=== PATIENT | male | born 1940 | race Caucasian/White ===

== ENCOUNTER 2016-07-12 15:10 | Emergency (ER) | payer MEDICARE, OTHER ==
[2016-07-12 15:42] LABS: #Eosinphils 0.1 thou/uL (0.0-0.7); #Lymphocytes 1.4 thou/uL (1.20-3.40); #Monocytes 0.4 thou/uL (0.11-0.59); #Neutrophils 3.7 thou/uL (1.40-6.50); %Basophils 0.8 % (0.0-1.0); %Eosinophils 1.2 % (0.0-10.0); %Lymphocytes 24.9 % (21.0-51.0); %Monocytes 7.4 % (0.0-10.0); %Neutrophils 65.7 % (42.0-75.0); Hemoglobin 11.7 g/dL (14.0-18.0); Mean Corpuscular HGB CONC 34.1 g/dL (32.0-36.0); Mean Corpuscular Hemoglobin 33.7 pg (27.0-31.0); Mean Corpuscular Volume 98.9 fl (80.0-94.0); Mean Platelet Volume 6.7 fL (7.4-10.4); Platelet Count 238 thou/uL (130-400); RBC Distribution Width 11.4 % (11.5-14.5); Red Blood Cell (RBC) Count 3.48 mill/uL (4.70-6.10); White Blood Cell (WBC) Count 5.6 thou/uL (4.8-10.8)
[2016-07-12 15:59] LABS: ALT (SGPT) 10 U/L (0-55); AST (SGOT) 14 U/L (5-34); Albumin 3.7 g/dL (3.4-4.8); Alkaline Phosphatase 80 U/L (40-150); Anion Gap 12 mmol/L (10-20); BUN (Urea Nitrogen) 18 mg/dL (8.4-25.7); Bilirubin, Total 0.4 mg/dL (0.2-1.2); Calc. Creatinine Clearance 0 mL/min (70-130); Calcium 8.8 mg/dL (7.8-10.44); Carbon Dioxide 28 mmol/L (23-31); Chloride 102 mmol/L (98-107); Estimated GFR-MDRD 69; Globulin 2.3 g/dL (2.4-3.5); Glucose 114 mg/dL (83-110); Potassium 4.2 mmol/L (3.5-5.1); Sodium 138 mmol/L (136-145)
--- NOTE | 2016-07-12 15:59 | CT ---
CT OF BRAIN PERFORMED WITHOUT CONTRAST ENHANCEMENT: HISTORY: Altered mental status. COMPARISON: 02/29/16 study. FINDINGS: There is marked generalized ventricular and sulcal prominence. Left-sided frontal temporal cranioto my change and underlying encephalomalacia is a stable finding. Chronic white matter changes are see n. No signs of intracerebral hemorrhage or extraaxial fluid collections. 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 POS: [facility]
[2016-07-12 16:00] LABS: Acetaminophen Less than 3.0 mcg/mL (10.0-30.0); Alcohol Less than 10 mg/dL (Less than 10); Salicylate Less than 5.0 mg/dL (15.0-30.0)
[2016-07-12 16:07] LABS: CKMB 2.5 ng/mL (0-6.6); Troponin I 0.022 ng/mL (< 0.028)
[2016-07-12 17:28] LABS: Amphetamine Not Detected (NotDetected); Barbiturates Screen Not Detected (NotDetected); Benzodiazepine Screen Not Detected (NotDetected); Cocaine Metabolite Screen Not Detected (NotDetected); Medtox Control Line Valid? VALID (VALID); Methadone Not Detected (NotDetected); Methamphetamine Not Detected (NotDetected); Opiate Screen Not Detected (NotDetected); Oxycodone Screen Not Detected (NotDetected); Phencyclidine (PCP) Not Detected (NotDetected); THC/Cannabinoid Screen Not Detected (NotDetected); Tricyclic Screen Not Detected (NotDetected)
[2016-07-12 17:29] LABS: Bilirubin Negative (Negative); Blood, Urine Negative (Negative); Clarity Clear (Clear); Glucose, Urine (Dipstick) Negative (Negative); Leukocyte Negative (Negative); Nitrite Negative (Negative); Protein, Urine (Dipstick) Trace mg/dL (Neg-Trace); Specific Gravity, Urine 1.015 (1.005-1.030); Urobilinogen 0.2 mg/dL (0.2-1.0)
[2016-07-12 17:53] LABS: Bacteria/HPF None Seen HPF (None Seen); RBC/HPF 0-3 HPF (0-3); Squamous Epithelial 0-3 HPF (0-3); WBC/HPF 0-3 HPF (0-3)
== END 2016-07-12 18:52 | disposition short-term general hospital (02) ==
LOC: MADERS 15:10
DX: R41.82 Altered mental status, unspecified (principal); I10 Essential (primary) hypertension; E78.5 Hyperlipidemia, unspecified; E11.9 Type 2 diabetes mellitus without complications
CPT/HCPCS: 36415; 70450; 80053; 80306; 80307; 81003; 81015; 82140; 82553; 84443; 84484; 85025; 93005

== ENCOUNTER 2016-11-18 10:14 | Inpatient (IN) | payer MEDICARE, OTHER ==
[2016-11-18 14:22] LABS: #Eosinphils 0.1 thou/uL (0.0-0.7); #Lymphocytes 0.9 thou/uL (1.20-3.40); #Monocytes 0.4 thou/uL (0.11-0.59); #Neutrophils 6.1 thou/uL (1.40-6.50); %Basophils 0.7 % (0.0-1.0); %Eosinophils 0.9 % (0.0-10.0); %Monocytes 5.5 % (0.0-10.0); Hemoglobin 11.5 g/dL (14.0-18.0); Mean Corpuscular HGB CONC 34.1 g/dL (32.0-36.0); Mean Corpuscular Volume 99.6 fl (80.0-94.0); Mean Platelet Volume 7.3 fL (7.4-10.4); Platelet Count 194 thou/uL (130-400); RBC Distribution Width 11.6 % (11.5-14.5); White Blood Cell (WBC) Count 7.5 thou/uL (4.8-10.8)
[2016-11-18 14:35] LABS: ALT (SGPT) 11 U/L (8-55); AST (SGOT) 15 U/L (5-34); Albumin 3.5 g/dL (3.4-4.8); Alkaline Phosphatase 78 U/L (40-150); Anion Gap 12 mmol/L (10-20); BUN (Urea Nitrogen) 20 mg/dL (8.4-25.7); Bilirubin, Total 0.3 mg/dL (0.2-1.2); Calc. Creatinine Clearance 0 mL/min (70-130); Calcium 8.6 mg/dL (7.8-10.44); Carbon Dioxide 28 mmol/L (23-31); Chloride 102 mmol/L (98-107); Estimated GFR-MDRD 68; Globulin 2.6 g/dL (2.4-3.5); Glucose 204 mg/dL (83-110); Potassium 3.9 mmol/L (3.5-5.1); Protein, Total 6.1 g/dL (5.8-8.1); Sodium 138 mmol/L (136-145)
[2016-11-18 16:28] VITALS: BMI 20.2
[2016-11-18] MEDS ORDERED: Ondansetron ODT 4 MG TAB PO PRN (16:33)
[2016-11-18] MEDS ORDERED: Acetaminophen 325 MG TAB PO PRN (16:33)
[2016-11-18] MEDS: Simvastatin 40 MG TAB PO SCH (21:24)
[2016-11-18] MEDS ORDERED: Cyanocobalamin (Vitamin B-12) 1,000 MCG TAB PO SCH (21:30)
[2016-11-18] MEDS: Cyanocobalamin (Vitamin B-12) 1,000 MCG TAB PO SCH (21:38)
[2016-11-19] MEDS: Lisinopril 10 MG TAB PO SCH (08:02)
[2016-11-19] MEDS: Cyanocobalamin (Vitamin B-12) 1,000 MCG TAB PO SCH (08:03)
[2016-11-19] MEDS: levETIRAcetam 500 MG TAB PO SCH (08:03)
[2016-11-19] MEDS: Folic Acid 1 MG TAB PO SCH (08:03)
[2016-11-19] MEDS: Simvastatin 40 MG TAB PO SCH (20:00)
[2016-11-20] MEDS: levETIRAcetam 500 MG TAB PO SCH (08:00)
[2016-11-20] MEDS: Folic Acid 1 MG TAB PO SCH (08:00)
[2016-11-20] MEDS: Cyanocobalamin (Vitamin B-12) 1,000 MCG TAB PO SCH (08:45)
[2016-11-20] MEDS ORDERED: Lisinopril 10 MG TAB PO SCH ×2 (09:45→10:15)
[2016-11-20] MEDS: Lisinopril 10 MG TAB PO SCH (10:52)
[2016-11-20] MEDS: Simvastatin 40 MG TAB PO SCH (19:53)
[2016-11-21] MEDS: Cyanocobalamin (Vitamin B-12) 1,000 MCG TAB PO SCH (08:42)
[2016-11-21] MEDS: Folic Acid 1 MG TAB PO SCH (08:42)
[2016-11-21] MEDS: levETIRAcetam 500 MG TAB PO SCH (08:42)
[2016-11-21] MEDS ORDERED: Lisinopril 10 MG TAB PO SCH (09:00)
[2016-11-21 11:37] VITALS: BP 160/75; TEMP 97.4
== END 2016-11-21 16:48 | disposition swing bed (61) | DRG 101 ==
LOC: MADERS 10:14 → MADMS 15:33
PROVIDERS: ADMIT Family Medicine; ATTEND Family Medicine
DX: G40.409 Other generalized epilepsy and epileptic syndromes, not intractable, without status epilepticus (principal); G30.9 Alzheimer's disease, unspecified; T74.01XA Adult neglect or abandonment, confirmed, initial encounter; D53.9 Nutritional anemia, unspecified; F02.80 Dementia in other diseases classified elsewhere, unspecified severity, without behavioral disturbance, psychotic disturbance, mood disturbance, and anxiety; R26.9 Unspecified abnormalities of gait and mobility; Z91.14 Patient's other noncompliance with medication regimen; E78.5 Hyperlipidemia, unspecified
CPT/HCPCS: 36416; 80053; 85025; 99285; 36415-59; A4216; G8978-GP-CJ; G8979-GP-CI

== ENCOUNTER 2016-11-21 17:12 | Inpatient (IN) | payer MEDICARE, OTHER ==
[2016-11-21 17:47] VITALS: BMI 21.8
[2016-11-21] MEDS ORDERED: Acetaminophen 325 MG TAB PO PRN (18:15)
[2016-11-21] MEDS ORDERED: Ondansetron ODT 4 MG TAB PO PRN (18:15)
[2016-11-21] MEDS: Simvastatin 40 MG TAB PO SCH (21:04)
[2016-11-22] MEDS: Cyanocobalamin (Vitamin B-12) 1,000 MCG TAB PO SCH (08:03)
[2016-11-22] MEDS: Lisinopril 10 MG TAB PO SCH (08:03)
[2016-11-22] MEDS: Folic Acid 1 MG TAB PO SCH (08:04)
[2016-11-22] MEDS: levETIRAcetam 500 MG TAB PO SCH (08:04)
[2016-11-22] MEDS: Simvastatin 40 MG TAB PO SCH (20:10)
[2016-11-23] MEDS: levETIRAcetam 500 MG TAB PO SCH (08:17)
[2016-11-23] MEDS: Folic Acid 1 MG TAB PO SCH (08:17)
[2016-11-23] MEDS: Cyanocobalamin (Vitamin B-12) 1,000 MCG TAB PO SCH (08:17)
[2016-11-23] MEDS: Lisinopril 10 MG TAB PO SCH (08:17)
[2016-11-23] MEDS: Simvastatin 40 MG TAB PO SCH (20:07)
[2016-11-24] MEDS: Folic Acid 1 MG TAB PO SCH (08:38)
[2016-11-24] MEDS: levETIRAcetam 500 MG TAB PO SCH (08:38)
[2016-11-24] MEDS: Cyanocobalamin (Vitamin B-12) 1,000 MCG TAB PO SCH (08:38)
[2016-11-24] MEDS: Lisinopril 10 MG TAB PO SCH (08:38)
[2016-11-24] MEDS: Simvastatin 40 MG TAB PO SCH (21:00)
[2016-11-25] MEDS: Lisinopril 10 MG TAB PO SCH (09:05)
[2016-11-25] MEDS: levETIRAcetam 500 MG TAB PO SCH (09:06)
[2016-11-25] MEDS: Cyanocobalamin (Vitamin B-12) 1,000 MCG TAB PO SCH (09:06)
[2016-11-25] MEDS: Folic Acid 1 MG TAB PO SCH (09:06)
[2016-11-25] MEDS: Simvastatin 40 MG TAB PO SCH (20:42)
[2016-11-26] MEDS: Lisinopril 10 MG TAB PO SCH (07:59)
[2016-11-26] MEDS: levETIRAcetam 500 MG TAB PO SCH (07:59)
[2016-11-26] MEDS: Folic Acid 1 MG TAB PO SCH (07:59)
[2016-11-26] MEDS: Cyanocobalamin (Vitamin B-12) 1,000 MCG TAB PO SCH (07:59)
[2016-11-26 08:01] VITALS: BP 157/79
[2016-11-26 08:19] VITALS: TEMP 97.1
== END 2016-11-26 12:03 | DRG 57 ==
LOC: MADMS 17:12
PROVIDERS: ADMIT Family Medicine; ATTEND Family Medicine
DX: G30.9 Alzheimer's disease, unspecified (principal); E11.9 Type 2 diabetes mellitus without complications; F02.80 Dementia in other diseases classified elsewhere, unspecified severity, without behavioral disturbance, psychotic disturbance, mood disturbance, and anxiety; I10 Essential (primary) hypertension; E55.9 Vitamin D deficiency, unspecified; D53.9 Nutritional anemia, unspecified; G40.909 Epilepsy, unspecified, not intractable, without status epilepticus; Z79.84 Long term (current) use of oral hypoglycemic drugs; E78.5 Hyperlipidemia, unspecified
CPT/HCPCS: A4216; G8978-GP-CJ; G8979-GP-CI